=== PATIENT | male | born 1985 | race Caucasian/White ===

== ENCOUNTER 2018-03-25 15:48 | Emergency (ER) | payer MEDICAID ==
[~2018-03-25] VITALS: Ht 162.6 cm; Wt 90.0 kg
[2018-03-25 15:54] VITALS: BP 153/77
--- NOTE | 2018-03-25 16:00 | NUR ---
Aracely burnham in EDM - 03/25/18 at 1630 by [email or web address] EDMD AT BEDSIDE PERFORMING MSE
--- NOTE | 2018-03-25 16:03 | NUR ---
PT AMBULATED TO BED 3
--- NOTE | 2018-03-25 16:03 | NUR ---
Aracely burnham in ED - 03/25/18 at 1603 by [email or web address] pt ambulated to bed 4
--- NOTE | 2018-03-25 16:06 | NUR ---
C/O LT SIDED CHEST PAIN RADIATING TO HIS LEFT ARM AND BACK WITH DIZZINESS X 1 MONTH HX; DENIES RX; DENIES
--- NOTE | 2018-03-25 16:10 | NUR ---
EDMD AT BEDSIDE PERFORMING MSE
[2018-03-25] MEDS ORDERED: ASPIRIN 325 MG TAB PO ONE (16:25)
[2018-03-25 16:41] LABS: BASOPHILS % (AUTO) 0.4 % (0.0-2.0); EOSINOPHILS # (AUTO) 0.1 K/uL (0-0.4); EOSINOPHILS % (AUTO) 1.3 % (0.0-4.0); HEMATOCRIT 45.1 % (36-52); HEMOGLOBIN 15.3 g/dL (12.0-18.0); LYMPHOCYTES # (AUTO) 3.1 K/uL (2.0-11.5); LYMPHOCYTES % (AUTO) 34.2 % (20.5-51.1); MEAN CORPUSCULAR HEMOGLOBIN 29 pg (27-31); MEAN CORPUSCULAR HGB CONC 34 g/dL (33-37); MEAN CORPUSCULAR VOLUME 85.9 fL (80-94); MONOCYTES # (AUTO) 0.8 K/uL (0.8-1.0); MONOCYTES % (AUTO) 8.4 % (1.7-9.3); NEUTROPHILS # (AUTO) 5.1 K/uL (1.8-7.7); NEUTROPHILS % (AUTO) 55.7 % (42.2-75.2); PLATELET COUNT (AUTO) 218 K/uL (140-450); RED BLOOD CELL COUNT(AUTO) 5.25 MIL/uL (4.20-6.10); RED CELL DISTRIBUTION WIDTH 12.8 % (11.6-13.7); WHITE BLOOD COUNT (AUTO) 9.2 K/uL (4.8-10.8)
[2018-03-25 16:54] LABS: ANION GAP 12.2 (8-16); CARBON DIOXIDE 27.2 mmol/L (21-32); CREATININE 0.7 mg/dL (0.7-1.3); POTASSIUM 3.4 mmol/L (3.5-5.1)
[2018-03-25 17:00] LABS: ALBUMIN 3.6 g/dL (3.4-5.0); TOTAL BILIRUBIN 0.3 mg/dL (0.0-1.0)
[2018-03-25 17:24] VITALS: BP 125/70
--- NOTE | 2018-03-25 17:25 | NUR ---
Patient discharged with v/s stable. Written and verbal after care instructions given and explained. Patient verbalized understanding. Ambulatory with steady gait. All questions addressed prior to discharge. Advised to follow up with PMD.
== END 2018-03-25 17:25 | disposition home or self-care (01) ==
LOC: MED 15:48
DX: R07.9 Chest pain, unspecified (principal); E87.6 Hypokalemia; R06.02 Shortness of breath; R51 Headache
CPT/HCPCS: 36415; 71045; 80053; 84484; 85025; 93005; 99284; Q0092

== ENCOUNTER 2018-09-27 08:43 | Emergency (ER) | payer MEDICAID ==
[~2018-09-27] VITALS: Ht 170.2 cm; Wt 88.9 kg
[2018-09-27 08:47] VITALS: BP 152/90
--- NOTE | 2018-09-27 08:54 | NUR ---
PT AMBULATED TO ER BED 07
--- NOTE | 2018-09-27 09:00 | NUR ---
C/O URINARY FREQUENCY/URGENCY X1 DAY. DENIES PAIN,N/V/D/FEVER. PT REPORTS TESTICULAR TENDERNESS. NO SWELLING/REDNESS NOTED. BED IN LOW POSITION, SIDE RAIL UP X1. CLEAN CATCH URINE COLLECTED AND SENT TO LAB.
--- NOTE | 2018-09-27 09:02 | NUR ---
ERMD AT BEDSIDE
[2018-09-27 09:21] VITALS: BP 152/90
--- NOTE | 2018-09-27 09:22 | NUR ---
Patient discharged with v/s stable. Written and verbal after care instructions given and explained. Patient alert, oriented and verbalized understanding of instructions. Ambulatory with steady gait. All questions addressed prior to discharge. ID band removed. Patient advised to follow up with PMD. Rx of CEPHALEXIN, PYRIDIUM given. Patient educated on indication of medication including possible reaction and side effects. Opportunity to ask questions provided and answered.
[2018-09-27 09:26] LABS: APPEARANCE,URINE CLEAR (CLEAR); BILIRUBIN,URINE NEGATIVE (NEGATIVE); BLOOD, URINE NEGATIVE (NEGATIVE); COLOR,URINE ORANGE (YELLOW); LEUKOCYTE ESTERASE ,URINE NEGATIVE (NEGATIVE); NITRITE, URINE POSITIVE (NEGATIVE); UGLUCOSE TRACE (NEGATIVE)
[2018-09-27 10:05] LABS: RBC,URINE NONE SEEN /HPF (0-5); WBC,URINE 0-5 /HPF (0-5)
[2018-09-29 17:09] LABS: CHLAMYDIA TRACHOMATIS AMP DNA NEGATIVE (NEGATIVE)
== END 2018-09-27 09:22 | disposition home or self-care (01) ==
LOC: MED 08:43
DX: N39.0 Urinary tract infection, site not specified (principal); R03.0 Elevated blood-pressure reading, without diagnosis of hypertension; Z87.442 Personal history of urinary calculi
CPT/HCPCS: 36415; 81001; 87086; 87491; 99283

== ENCOUNTER 2018-09-30 14:02 | Emergency (ER) | payer MEDICAID ==
[~2018-09-30] VITALS: Ht 154.9 cm; Wt 86.2 kg
[2018-09-30 14:07] VITALS: BP 161/95
--- NOTE | 2018-09-30 14:15 | NUR ---
BIB SELF. AAO X4 C/O FREQUENT URINATION. WAS SEEN ON WEDNESDAY FOR SAME COMPLAINT BUT PT STATES PRESCRIPTION DID NOT HELP. PT STATES HE SOMETIMES GETS FLANK PAIN AND BURNING SENSATION DURING URINATION. ER TO EVALUATE PT.
--- NOTE | 2018-09-30 14:38 | NUR ---
DR BROWN AT BEDSIDE FOR PT EVAL
[2018-09-30] MEDS ORDERED: LEVOFLOXACIN 500 MG TAB PO ONE (14:40)
[2018-09-30] MEDS ORDERED: KETOROLAC 60 MG/2 ML VIAL IM ONE (14:40)
[2018-09-30] MEDS ORDERED: cefTRIAXone 1,000 MG in LIDOCAINE 1% ***ER ONLY *** 2.1 ML IM ONE (14:40)
[2018-09-30] MEDS ORDERED: cefTRIAXone 1,000 MG VIAL ONE (14:55)
[2018-09-30] MEDS ORDERED: LIDOCAINE MPF 1% - 5 mL VIAL 5 ML ONE (14:58)
[2018-09-30 15:11] LABS: BARBITURATE, URINE NEG. ng/ml (NEG <=200); BENZODIAZEPINE, URINE NEG. ng/mL (NEG <=200); CANNABINOID, URINE NEG. ng/mL (NEG <=50); COCAINE, URINE NEG. ng/mL (NEG <=300); OPIATE, URINE NEG. ng/mL (NEG <=2000); PHENCYCLIDINE SCREEN,URINE NEG. ng/mL (NEG <=25)
[2018-09-30 15:14] LABS: APPEARANCE,URINE CLEAR (CLEAR); BILIRUBIN,URINE NEGATIVE (NEGATIVE); BLOOD, URINE NEGATIVE (NEGATIVE); COLOR,URINE YELLOW (YELLOW); LEUKOCYTE ESTERASE ,URINE NEGATIVE (NEGATIVE); NITRITE, URINE NEGATIVE (NEGATIVE); PH,URINE 5.5 (5.0-9.0); UGLUCOSE NEGATIVE (NEGATIVE)
[2018-09-30 16:15] VITALS: BP 142/92
== END 2018-09-30 16:15 | disposition home or self-care (01) ==
LOC: MED 14:02
DX: N41.9 Inflammatory disease of prostate, unspecified (principal); Z87.442 Personal history of urinary calculi; Z98.890 Other specified postprocedural states
CPT/HCPCS: 80305; 81003; 96372; 99283; J0696; J1885; J2001

== ENCOUNTER 2018-11-20 04:52 | Emergency (ER) | payer MEDICAID ==
[~2018-11-20] VITALS: Ht 167.6 cm; Wt 81.6 kg
[2018-11-20 05:08] VITALS: BP 125/86
--- NOTE | 2018-11-20 05:08 | NUR ---
33 yo male comes to ED for c/o leg and hip pain x1 month. Pt states he was at hospital with renal stones and prostate problems x1 month ago. Pt states soon after he has episodes of pain during urination and when in sitting position to bilateral legs and hips.. Pt denies numbness or tingling sensation. Pt has clear even unlabored breath sounds. abd soft non distended. Pt voiding clear yellow urine. Gurney locked in lowest position. will update ERMD. HX: renal stones, prostate problem NKA
--- NOTE | 2018-11-20 05:55 | NUR ---
lab @ bedside. UA collected.
[2018-11-20 06:02] LABS: BASOPHILS % (AUTO) 0.4 % (0.0-2.0); EOSINOPHILS # (AUTO) 0.1 K/uL (0-0.4); EOSINOPHILS % (AUTO) 0.7 % (0.0-4.0); HEMATOCRIT 45.7 % (36-52); HEMOGLOBIN 15.5 g/dL (12.0-18.0); LYMPHOCYTES # (AUTO) 2.7 K/uL (2.0-11.5); LYMPHOCYTES % (AUTO) 35.4 % (20.5-51.1); MEAN CORPUSCULAR HEMOGLOBIN 30 pg (27-31); MEAN CORPUSCULAR HGB CONC 34 g/dL (33-37); MEAN CORPUSCULAR VOLUME 87.1 fL (80-94); MONOCYTES # (AUTO) 0.6 K/uL (0.8-1.0); MONOCYTES % (AUTO) 7.7 % (1.7-9.3); NEUTROPHILS # (AUTO) 4.3 K/uL (1.8-7.7); NEUTROPHILS % (AUTO) 55.8 % (42.2-75.2); PLATELET COUNT (AUTO) 208 K/uL (140-450); RED BLOOD CELL COUNT(AUTO) 5.24 MIL/uL (4.20-6.10); RED CELL DISTRIBUTION WIDTH 12.8 % (11.6-13.7); WHITE BLOOD COUNT (AUTO) 7.7 K/uL (4.8-10.8)
[2018-11-20 06:03] LABS: APPEARANCE,URINE CLEAR (CLEAR); BILIRUBIN,URINE NEGATIVE (NEGATIVE); BLOOD, URINE TRACE-I (NEGATIVE); COLOR,URINE YELLOW (YELLOW); LEUKOCYTE ESTERASE ,URINE NEGATIVE (NEGATIVE); NITRITE, URINE NEGATIVE (NEGATIVE); PH,URINE 5.5 (5.0-9.0); UGLUCOSE NEGATIVE (NEGATIVE)
[2018-11-20 06:12] LABS: RBC,URINE 0-5 /HPF (0-5); WBC,URINE 0-5 /HPF (0-5)
[2018-11-20 06:14] LABS: ANION GAP 14.6 (8-16); CREATININE 0.8 mg/dL (0.7-1.3); POTASSIUM 3.6 mmol/L (3.5-5.1)
[2018-11-20 06:19] LABS: TOTAL BILIRUBIN 0.6 mg/dL (0.0-1.0)
[2018-11-20 06:20] LABS: ALBUMIN 3.6 g/dL (3.4-5.0)
--- NOTE | 2018-11-20 06:47 | NUR ---
20 g IV to LAC started. patent, converted to SL.
--- NOTE | 2018-11-20 06:47 | NUR ---
consent signed for CT scan.
--- NOTE | 2018-11-20 07:05 | NUR ---
Aracely burnham in [facility] - 11/20/18 at 0738 by [email or web address] RECEIVED REPORT FROM LIZY BAI FOR CONTINUATION OF CARE.
[2018-11-20 08:05] LABS: BARBITURATE, URINE NEG. ng/ml (NEG <=200); BENZODIAZEPINE, URINE NEG. ng/mL (NEG <=200); CANNABINOID, URINE NEG. ng/mL (NEG <=50); COCAINE, URINE NEG. ng/mL (NEG <=300); OPIATE, URINE NEG. ng/mL (NEG <=2000); PHENCYCLIDINE SCREEN,URINE NEG. ng/mL (NEG <=25)
[2018-11-20 08:22] VITALS: BP 132/81
--- NOTE | 2018-11-20 08:22 | NUR ---
Patient discharged with v/s stable. Written and verbal after care instructions given and explained. Patient alert, oriented and verbalized understanding of instructions. Ambulatory with steady gait. All questions addressed prior to discharge. ID band removed. Patient advised to follow up with PMD. Rx of VISTARIL given. Patient educated on indication of medication including possible reaction and side effects. Opportunity to ask questions provided and answered.
== END 2018-11-20 08:22 | disposition home or self-care (01) ==
LOC: MED 04:52
DX: K58.9 Irritable bowel syndrome, unspecified (principal); F41.9 Anxiety disorder, unspecified; F32.9 Major depressive disorder, single episode, unspecified; F45.9 Somatoform disorder, unspecified; Z87.442 Personal history of urinary calculi
CPT/HCPCS: 36415; 74178; 80053; 80305; 81001; 83690; 85025; 99284; Q9967

== ENCOUNTER 2019-02-13 14:11 | Emergency (ER) | payer MEDICAID ==
[~2019-02-13] VITALS: Ht 162.6 cm; Wt 84.9 kg
[2019-02-13 14:21] VITALS: BP 141/77
--- NOTE | 2019-02-13 14:23 | NUR ---
AFTER PROVIDING URINE SAMPLE, PT AMBULATES BACK TO THE LOBBY
--- NOTE | 2019-02-13 14:30 | NUR ---
Pt taken to bed 7.
[2019-02-13] MEDS ORDERED: ONDANSETRON 4 MG ODT PO ONE (14:40)
--- NOTE | 2019-02-13 14:50 | NUR ---
C/O BILAT UPPER QUADRANT PAIN 12/10 X5 DAYS. PT DENIES N/V/D/FEVER/INJURY. ABDOMEN SOFT/FLAT AND TENDER TO PALPATION IN BILAT UPPER QUADRANTS. LBM 02/12/19, REGULAR PER PT. BOWEL SOUNDS PRESENT X4.
[2019-02-13 15:45] LABS: BASOPHILS % (AUTO) 0.3 % (0.0-2.0); EOSINOPHILS # (AUTO) 0.1 K/uL (0-0.4); EOSINOPHILS % (AUTO) 0.7 % (0.0-4.0); HEMATOCRIT 45.1 % (36-52); HEMOGLOBIN 15.2 g/dL (12.0-18.0); LYMPHOCYTES # (AUTO) 2.9 K/uL (2.0-11.5); LYMPHOCYTES % (AUTO) 27.4 % (20.5-51.1); MEAN CORPUSCULAR HEMOGLOBIN 30 pg (27-31); MEAN CORPUSCULAR HGB CONC 34 g/dL (33-37); MEAN CORPUSCULAR VOLUME 88.6 fL (80-94); MONOCYTES # (AUTO) 0.9 K/uL (0.8-1.0); MONOCYTES % (AUTO) 8.8 % (1.7-9.3); NEUTROPHILS # (AUTO) 6.6 K/uL (1.8-7.7); NEUTROPHILS % (AUTO) 62.8 % (42.2-75.2); PLATELET COUNT (AUTO) 220 K/uL (140-450); RED BLOOD CELL COUNT(AUTO) 5.09 MIL/uL (4.20-6.10); RED CELL DISTRIBUTION WIDTH 12.9 % (11.6-13.7); WHITE BLOOD COUNT (AUTO) 10.5 K/uL (4.8-10.8)
[2019-02-13 16:04] LABS: ANION GAP 10.5 (8-16); CARBON DIOXIDE 28.1 mmol/L (21-32); CREATININE 0.7 mg/dL (0.7-1.3); POTASSIUM 3.6 mmol/L (3.5-5.1)
[2019-02-13 16:16] LABS: ALBUMIN 3.8 g/dL (3.4-5.0); TOTAL BILIRUBIN 0.4 mg/dL (0.0-1.0)
[2019-02-13 16:37] VITALS: BP 126/83
--- NOTE | 2019-02-13 16:38 | NUR ---
Patient discharged with v/s stable. Written and verbal after care instructions given and explained. Patient alert, oriented and verbalized understanding of instructions. Ambulatory with steady gait. All questions addressed prior to discharge. ID band removed. Patient advised to follow up with PMD. Rx of PRILOSEC given. Patient educated on indication of medication including possible reaction and side effects. Opportunity to ask questions provided and answered.
== END 2019-02-13 16:38 | disposition home or self-care (01) ==
LOC: MED 14:11
DX: K58.1 Irritable bowel syndrome with constipation (principal); K29.70 Gastritis, unspecified, without bleeding
CPT/HCPCS: 36415; 74176; 80053; 83690; 85025; 99284; Q0162

== ENCOUNTER 2022-10-15 04:50 | Emergency (ER) | payer MEDICAID ==
[~2022-10-15] VITALS: Ht 165.1 cm; Wt 81.6 kg
[2022-10-15 05:20] VITALS: BP 134/76
--- NOTE | 2022-10-15 06:06 | NUR ---
Dr. Mcclain examining patient.
[2022-10-15] MEDS ORDERED: methocarbamoL 500 MG TAB PO STA (06:14)
[2022-10-15] MEDS ORDERED: predniSONE 20 MG TAB PO ONE (06:15)
[2022-10-15] MEDS ORDERED: KETOROLAC 15 MG/ML VIAL IM ONE (06:15)
[2022-10-15] MEDS ORDERED: LIDOCAINE 5% 1 EA PATCH TP ONE (06:15)
[2022-10-15] MEDS ORDERED: LID5T TP (06:53)
[2022-10-15] MEDS ORDERED: METH-1681 PO (06:53)
[2022-10-15] MEDS ORDERED: IBUP-2213 PO (06:53)
[2022-10-15] MEDS ORDERED: PRED20TA5 PO (06:53)
[2022-10-15 07:04] VITALS: BP 134/76
--- NOTE | 2022-10-15 07:04 | NUR ---
Patient discharged with v/s stable. Written and verbal after care instructions given and explained. New rx ibuprofen, lidocaine, robaxin, prednisone. Patient verbalized understanding. Ambulatory with steady gait. All questions addressed prior to discharge. Advised to follow up with PMD.
== END 2022-10-15 07:04 | disposition home or self-care (01) ==
LOC: MED 04:50
DX: S39.012A Strain of muscle, fascia and tendon of lower back, initial encounter (principal); M54.17 Radiculopathy, lumbosacral region; Z79.899 Other long term (current) drug therapy; Z79.1 Long term (current) use of non-steroidal anti-inflammatories (NSAID); X50.0XXA Overexertion from strenuous movement or load, initial encounter; Y92.89 Other specified places as the place of occurrence of the external cause; Y93.89 Activity, other specified; Y99.0 Civilian activity done for income or pay
CPT/HCPCS: 96372; 99284; J1885; J7512

== ENCOUNTER 2024-01-29 17:57 | Emergency (ER) | payer MEDICAID ==
[~2024-01-29] VITALS: Ht 154.9 cm; Wt 91.6 kg
[~2024-01-29 17:57] MED LIST: IBUP-2213 PO; LID5T TP; METH-1681 PO; PRED20TA5 PO
[2024-01-29 18:30] VITALS: BP 181/93; PULSE 71; RESP 16; TEMP 98.8; O2SAT 98
[2024-01-29] MEDS ORDERED: ESOM40EC PO (19:33)
== END 2024-01-29 19:36 | disposition home or self-care (01) ==
LOC: MED 17:57
DX: T81.33XA Disruption of traumatic injury wound repair, initial encounter (principal); K21.9 Gastro-esophageal reflux disease without esophagitis; C44.99 Other specified malignant neoplasm of skin, unspecified; I10 Essential (primary) hypertension; Z79.899 Other long term (current) drug therapy
CPT/HCPCS: 99283